=== PATIENT | female | born 1995 | race Two or more races ===

== ENCOUNTER 2019-06-19 20:29 | Emergency (ER) | payer BC ==
[~2019-06-19] VITALS: Ht 167.6 cm; Wt 65.3 kg
--- NOTE | 2019-06-19 20:40 | NUR ---
URINE COLLECTED AND SENT TO LAB
--- NOTE | 2019-06-19 20:40 | NUR ---
PT BIBSELF C/O VAGINAL BLEEDING X1HR [employer]. PT DESCRIBED BRIGHT RED BLOOD WITH CLOTS. ALSO C/O MILD ABDOMINAL CRAMPING. PT STATES SHE IS ABOUT 17 WEEKS , 1 PARA 0. PT AAOX4. RESPIRATIONS EVEN AND UNLABORED. SKIN WARM AND INTACT. VITAL SIGNS STABLE. AMBULATORY WITH STEADY GAIT. WILL CONTINUE TO MONITOR
[2019-06-19 20:59] LABS: APPEARANCE,URINE Slightly Cloudy (CLEAR); BILIRUBIN,URINE Negative (NEGATIVE); BLOOD, URINE Moderate Ery/uL (NEGATIVE); COLOR,URINE Dark (YELLOW); KETONES,URINE Negative (NEGATIVE); LEUKOCYTE ESTERASE ,URINE Negative (NEGATIVE); NITRITE, URINE Negative (NEGATIVE); PH,URINE 6.5 (5.0-8.0); PROTEIN,URINE Negative (NEGATIVE); UGLUCOSE Negative (NEGATIVE); UROBILINOGEN,URINE 0.2 EU/dL (0.2)
[2019-06-19 21:11] LABS: BACTERIA,URINE Rare /HPF (None Seen); RBC,URINE 51-80 /HPF (0-2); SQUAMOUS EPITHELIAL CELL,UR Few /HPF (None Seen)
[2019-06-19 21:20] LABS: BASOPHILS # (AUTO) 0.1 /CMM (0.0-0.2); BASOPHILS % (AUTO) 0.5 % (0.0-2.0); EOSINOPHILS % (AUTO) 0.7 % (0.0-6.0); HEMATOCRIT 38 % (33-45); LYMPHOCYTES % (AUTO) 23.8 % (20.0-44.0); MEAN CORPUSCULAR HGB CONC 35 g/dl (31.0-36.0); MEAN CORPUSCULAR VOLUME 89 fL (82-100); MONOCYTES # (AUTO) 0.9 /CMM (0.1-1.30); MONOCYTES % (AUTO) 6.8 % (2.0-12.0); NEUTROPHILS # (AUTO) 8.7 /CMM (1.8-8.9); NEUTROPHILS % (AUTO) 68.2 % (43.0-81.0); PLATELET COUNT (AUTO) 225 /CMM (150-450); RED BLOOD CELL COUNT(AUTO) 4.24 MIL/uL (4.0-5.2); WHITE BLOOD COUNT (AUTO) 12.7 K/uL (4.3-11.0)
[2019-06-19 22:21] VITALS: BP 118/76
--- NOTE | 2019-06-19 22:21 | NUR ---
Patient discharged to home in stable condition. Written and verbal after care instructions given. Patient verbalizes understanding of instruction.Pt ambulatory with a steady gait
== END 2019-06-19 22:22 | disposition home or self-care (01) ==
LOC: ER 20:37
DX: O20.0 Threatened abortion (principal); Z86.19 Personal history of other infectious and parasitic diseases
CPT/HCPCS: 36415; 76856-TC; 81000-TC; 84702-TC; 85025-TC